=== PATIENT | male | born 1955 | race Caucasian/White ===

== ENCOUNTER 2021-01-24 08:55 | Inpatient (IN) ==
[~2021-01-24 08:55] MED LIST: ceFAZolin 1,000 MG, Sodium Chloride IRRigation 1,000 ML IR ONE
[2021-01-24] MEDS ORDERED: *HR* Propofol 200 MG/20 ML VIAL IVP ONE (09:10)
[2021-01-24] MEDS ORDERED: *HR* Rocuronium Bromide 50 MG/5 ML VIAL ONE ×3 (09:11→13:58)
[2021-01-24] MEDS ORDERED: Lidocaine -MPF 2% 2 ML VIAL ONE (09:11)
[2021-01-24] MEDS ORDERED: Ondansetron 4 MG/2 ML VIAL ONE (09:11)
[2021-01-24] MEDS ORDERED: Lidocaine HCL 4 ML Topical Solution (Laryng-O-Jet Kit Sterile Pak) TP ONE (09:11)
[2021-01-24] MEDS ORDERED: *HR* FentaNYL (PF) 100 MCG/2 ML VIAL ONE ×2 (09:11→12:45)
[2021-01-24] MEDS ORDERED: CeFAZolin Syr 2,000MG/20 ML 2,000 MG/20 ML SYRINGE IVPB ONE (09:21)
[2021-01-24] MEDS ORDERED: Ringers Solution, Lactated 1,000 ML IVC SCH (09:30)
[2021-01-24] MEDS ORDERED: *HR* HYDROmorphone PF 0.5 MG/0.5 ML SYRINGE IVP PRN (09:44)
[2021-01-24] MEDS ORDERED: Ondansetron 4 MG/2 ML VIAL IVP PRN (09:44)
[2021-01-24] MEDS ORDERED: *HR* OxyCODONE Immed Rel 5 MG TABLET PO PRN (09:44)
[2021-01-24] MEDS ORDERED: *HR* Heparin 5,000 UNIT/ML VIAL ONE (10:05)
[2021-01-24] MEDS ORDERED: Protamine Sulfate 50 MG/5 ML VIAL IVP ONE (11:05)
[2021-01-24] MEDS ORDERED: Heparin 1,000 UNITS/500 mL 2,000 ML ONE (11:05)
[2021-01-24] MEDS ORDERED: *HR* HYDROMORPHONE 2 MG/ML VIAL ONE (13:24)
[2021-01-24] MEDS ORDERED: Naloxone 0.4 MG/ML INJ IVP PRN (15:35)
[2021-01-24] MEDS ORDERED: *HR* Labetalol 20 MG/4 ML SYRINGE IVP PRN (15:35)
[2021-01-24] MEDS ORDERED: Ibuprofen 600 MG TABLET PO PRN (15:35)
[2021-01-24] MEDS: CeFAZolin 2 GM/120 ML BAG IVPB SCH (17:38)
[2021-01-25] MEDS: CeFAZolin 2 GM/120 ML BAG IVPB SCH ×2 (00:21→07:55)
[2021-01-25 04:48] LABS: Basophils % 0.1 %; Eosinophils # 0.1 K/mcL (0.0-0.6); Eosinophils % 0.5 %; Hematocrit 34.1 % (37.5-50.1); Immature Granulocytes % 0.4 % (0-4); Lymphocytes # 1.1 K/mcL (0.6-4.6); Lymphocytes % 11.8 %; Mean Corpuscular HGB Conc 32.3 g/dL (31.6-35.5); Mean Corpuscular Hemoglobin 28.6 pg (28.0-33.3); Mean Corpuscular Volume 88.8 fL (83.0-100.0); Monocytes # 0.8 K/mcL (0.0-1.3); Monocytes % 8.6 %; Neutrophils # 7.3 K/mcL (1.6-8.9); Platelet Count 191 K/mcL (140-400); Red Blood Count 3.84 M/mcL (4.19-5.50); Red Cell Distribution Width 12.6 % (11.5-14.5); Segmented Neutrophils % 78.6 %; White Blood Count 9.2 K/mcL (4.3-11.1)
[2021-01-25 05:09] LABS: BUN/Creatinine Ratio 11 (6-26); Blood Urea Nitrogen 12 mg/dL (8-23); Calcium 8.2 mg/dL (8.6-10.3); Carbon Dioxide 26 mEq/L (23-29); Chloride 99 mEq/L (98-107); Glucose 117 mg/dL (70-105); Osmolality,Calculated 287 (280-300); Potassium 3.1 mEq/L (3.5-5.1); Sodium 138 mEq/L (136-145); eGFR For African Americans > 60 (> 60); eGFR For Non-African Americans > 60 (> 60)
[2021-01-25] MEDS ORDERED: Aspirin Enteric Coated 81 MG Tablet PO SCH (09:00)
[2021-01-25] MEDS ORDERED: Multivit/Ca/Min/Fe/FA 1 TAB TABLET PO SCH (09:00)
[2021-01-25] MEDS ORDERED: atenoloL 50 MG TABLET PO SCH (09:00)
[2021-01-25] MEDS ORDERED: lisinopriL 20 MG TABLET PO SCH (09:00)
[2021-01-25] MEDS ORDERED: Patient Taking Own Medication 1 EACH PO SCH ×3 (09:00)
[2021-01-25] MEDS ORDERED: hydroCHLOROthiazide 25 MG TABLET PO SCH (09:00)
[2021-01-25] MEDS ORDERED: Potassium Chloride Elixir 20 MEQ/15 ML UDC PO ONE (10:25)
[2021-01-25 11:08] VITALS: BP 112/61
== END 2021-01-25 12:41 | disposition home or self-care (01) | DRG 272 ==
LOC: SAMDAY 08:55 → 2NNU 15:38
PROVIDERS: ADMIT Surgery Vascular Surgery; ATTEND Surgery Vascular Surgery